=== PATIENT | male | born 1965 | race Caucasian/White ===

== ENCOUNTER → 2017-07-06 | Day surgery (SDC) | payer OTHER ==
[~2017-07-06] MED LIST: ACETYLCYSTEINE 20% 6,000 MG/30 ML ORAL SOLN VIAL ONE; ALUMINUM/MAGNESIUM/SIMETH 30 ML CUP ONE; MORPHINE SULFATE 4 MG/ML INJ ONE; OMEP20CA5 PO; PROPOFOL 500 MG/50 ML BTL IV ONE; STERILE WATER FOR INJECTION 20 ML VIAL ONE; VENTAER INH
--- NOTE | 2017-07-06 14:09 | GIPROC ---
[facility] [address] [facility], [address] EGD PROCEDURE REPORT EXAM DATE: 07/06/2017 PATIENT NAME: Mars Reveles MR #: [id number] BIRTHDATE: 1965 ATTENDING: Tawanna Owens MD ORDER #: [id number] [employer] ATTENDANT: Jakub Soriano RN STATUS: outpatient INDICATIONS: The patient is a 52 yr old male here for an EGD due to history of Dalton's esophagus and therapy of Dalton's esophagus PROCEDURE PERFORMED: EGD w/ thermal GERD treatment EGD w/ ablation MEDICATIONS: None and Per Anesthesia. TOPICAL ANESTHETIC: CONSENT: The patient understands the risks and benefits of the procedure and understands that these risks include, but are not limited to: sedation, allergic reaction, infection, perforation and/or bleeding. Alternative means of evaluation and treatment include, among others: physical exam, x-rays, and/or surgical intervention. The patient elects to proceed with this endoscopic procedure. medical equipment was checked for proper function. Hand hygiene and appropriate measures for infection prevention was taken. After the risks, benefits and alternatives of the procedure were thoroughly explained, Informed consent was verified, confirmed and timeout was successfully executed by the treatment team. The patient was anesthetized with topical anesthesia and the EG-[id number] ([id number]) endoscope was introduced through the mouth and advanced to the second portion of the duodenum. Retroflexed views revealed a hiatal hernia The gastroscope was then slowly withdrawn and removed. ESOPHAGUS: There was a 4cm segment of Dalton's esophagus found in the distal esophagus. The length of circumferential Dalton's was 3cm (Patrick C3) and the length of Maximal extent of Dalton's was 1cm (Patrick M1). There was no nodular mucosa noted in the Dalton's segment. RFA procedure: Given the above findings, the decision was made to treat the Dalton's esophagus with endoscopic ablation, using the Halo 90 cap device. The cap ablation device was placed on the endoscope and the esophagus was treated at 12J/cm2. RF ablation of the circumferential Dalton's tissue, tongues, and islands was performed. Each area was treated x 2, the ablation zone was cleaned of coagulative debris with the ablation device, irrigation and suction using the endoscope. The area was then treated x 2 again until a chamois colored area was observed at the site of treatment. A total of 22 ablations were performed. STOMACH: There was mild gastritis in the gastric antrum. DUODENUM: The duodenal mucosa appeared normal in the bulb and second portion of the duodenum. ADVERSE EVENTS: There were no complications. IMPRESSIONS: 1. There was a 4cm segment of Dalton's esophagus found in the distal esophagus; RF ablation of the circumferential Dalton's tissue, tongues, and islands was performed 2. There was mild gastritis in the gastric antrum 3. Normal duodenal mucosa in the bulb and second portion of the duodenum 4. Retroflexed views revealed a hiatal hernia RECOMMENDATIONS: 1. Await biopsy results. Biopsy results will not be ready for 7-10 days. If you don't hear from us in two weeks, call our office for biopsy results. 2. Anti-reflux regimen 3. Continue PPI PATIENT CONDITION: stable DISPOSITION: Home REPEAT EXAM: Return 3 months EGD with sclerotherapy Tawanna Owens MD eSigned: Tawanna Owens MD 07/06/2017 2:09 PM cc: Jackie Granger PATIENT NAME: Mars Reveles MR#: [id number]
== END | disposition home or self-care (01) ==
LOC: ESDC 12:27
PROVIDERS: ATTEND Internal Medicine Gastroenterology
DX: K22.70 Barrett's esophagus without dysplasia (principal); K44.9 Diaphragmatic hernia without obstruction or gangrene; K29.70 Gastritis, unspecified, without bleeding
CPT/HCPCS: 00740; 43270; J2270; J3010